=== PATIENT | male | born 1965 | race Caucasian/White ===

== ENCOUNTER 2018-05-18 20:52 | Emergency (ER) | payer MEDICAID ==
[~2018-05-18] VITALS: Ht 167.6 cm; Wt 75.7 kg
[2018-05-18 20:55] VITALS: Ht 167.6 cm; Wt 75.7 kg
[2018-05-18] MEDS ORDERED: MOBIC7.5 MG PO (20:56)
[2018-05-18 21:26] LABS: APPEARANCE CLEAR (CLEAR); BILIRUBIN NEGATIVE (NEGATIVE); COLOR YELLOW (YELLOW); GLUCOSE NEGATIVE (NEGATIVE); KETONE NEGATIVE (NEGATIVE); NITRITE NEGATIVE (NEGATIVE); PROTEIN NEGATIVE (NEGATIVE); UROBILINOGEN NORMAL (NORMAL)
[2018-05-18] MEDS ORDERED: MIRALAX17 GM PO (21:54)
[2018-05-18 22:16] VITALS: BP 145/85
== END 2018-05-18 22:17 | disposition home or self-care (01) ==
LOC: D.ER 20:52
PROVIDERS: Emergency Medicine
DX: K59.00 Constipation, unspecified (principal)